=== PATIENT | male | born 1950 | race Hispanic/Latino ===

== ENCOUNTER 2019-07-17 22:54 | Inpatient (IN) | payer OTHER ==
[2019-07-18] MEDS ORDERED: NA CHLORIDE 0.9% 1,000 ML ONE (01:02)
[2019-07-18 01:06] LABS: Absolute Lymphocytes (CBC) 0.8 K/uL (0.7-4.9); Basophils % 0.4 % (0-1.3); Lymphocytes % 6.8 % (15.3-44.8); MPV 8.6 fL (7.6-11.3)
[2019-07-18 01:18] LABS: Bilirubin Total 0.4 mg/dL (0.2-1.0); Potassium 4.7 mmol/L (3.5-5.1); Protein, Total 7.2 g/dL (6.4-8.2)
[2019-07-18 02:27] LABS: Urine Blood NEGATIVE (NEG); Urine Glucose NEGATIVE (NEG); Urine Protein 3+ (NEG); Urine pH 6.5 (5.0-7.0)
--- NOTE | 2019-07-18 02:27 | ER ---
Nurse's Notes [facility] Name: Leonidas Cole Age: 68 yrs Sex: Male : 1950 Arrival Date: 07/17/2019 Time: 22:55 Bed 15 Private MD: Meredith Liriano Atiq Diagnosis: Bilateral Pneumonia Presentation: 07/17 23:34 Presenting complaint: Patient states: that over the past 2 days he has had trouble fc breathing, occ. cough with green sputum and nasal congestion. Transition of care: patient was not received from another setting of care. Onset of symptoms was July 15, 2019. Risk Assessment: Do you want to hurt yourself or someone else? Patient reports no desire to harm self or others. Initial Sepsis Screen: Does the patient meet any 2 criteria? No. Patient's initial sepsis screen is negative. Does the patient have a suspected source of infection? No. Patient's initial sepsis screen is negative. Care prior to arrival: None. 23:34 Method Of Arrival: Ambulatory 23:34 Acuity: SETH 3 fc Historical: - Allergies: 23:38 No Known Allergies; fc - Home Meds: 23:45 amlodipine 10 mg oral tab 1 tab once daily [Active]; carvedilol 3.125 mg oral tab 1 tab fc 2 times per day [Active]; gabapentin 100 mg oral cap twice a day [Active]; allopurinol 100 mg Oral tab 2 tabs once daily [Active]; aspirin 81 mg Oral chew 1 tab once daily [Active]; repatha twice a day [Active]; hydralazine 10 mg Oral tab 1 tab daily [Active]; hydroxyzine HCl 25 mg Oral tab .5 tab daily [Active]; - PMHx: 23:38 CAD; Hypertension; fc - PSHx: 23:38 heart cath; fc - Immunization history:: Last tetanus immunization: up to date Flu vaccine is not up to date. Patient has never been vaccinated. - Social history:: Smoking status: Patient/guardian denies using tobacco, Patient/guardian denies using alcohol, street drugs. - Ebola Screening: : Patient negative for fever greater than or equal to 101.5 degrees Fahrenheit, and additional compatible Ebola Virus Disease symptoms Patient denies exposure to infectious person Patient denies travel to an Ebola-affected area in the 21 days before illness onset. Screenin:40 Abuse screen: Denies threats or abuse. Nutritional screening: No deficits noted. fc Tuberculosis screening: No symptoms or risk factors identified. Fall Risk None identified. Assessment: 07/18 00:23 General: Appears uncomfortable, Behavior is appropriate for age. Pain: Complains of lp1 pain in chest. Neuro: Level of Consciousness is awake, alert, obeys commands, Oriented to person, place, time, situation. Cardiovascular: Patient's skin is warm and dry. Rhythm is sinus rhythm. Respiratory: Reports shortness of breath at rest cough that is productive, pain with respiration Airway is patent Respiratory effort is even, labored, Respiratory pattern is symmetrical, Breath sounds are clear bilaterally. Onset: The symptoms/episode began/occurred gradually, the patient has moderate shortness of breath. GI: Abdomen is non-distended. : No signs and/or symptoms were reported regarding the genitourinary system. EENT: Reports nasal congestion nasal discharge. Derm: Skin is pink, warm \T\ dry. Musculoskeletal: No deficits noted. 01:30 Reassessment: Patient appears in no apparent distress at this time. Patient and/or lp1 family updated on plan of care and expected duration. Pain level reassessed. Patient aware of pending results at this time. 02:20 Reassessment: Patient appears in no apparent distress at this time. no complaints made rr5 awaiting for review. 03:10 Reassessment: complaints of ED provider aware with order made and carried out. rr5 03:40 Reassessment: Patient appears in no apparent distress at this time. Patient is alert, rr5 oriented x 3, equal unlabored respirations, skin warm/dry/pink. Patient states feeling better. Patient states symptoms have improved. 04:00 Reassessment: Patient appears in no apparent distress at this time. Patient and/or rr5 family updated on plan of care and expected duration. Pain level reassessed. Patient is alert, oriented x 3, equal unlabored respirations, skin warm/dry/pink. seen and examined by dr. farfan agreed for the plan of care and for the admission. Vital Signs: 07/17 23:38 BP 147 / 56; Pulse 85; Resp 20; Temp 100.3(O); Pulse Ox 89% on R/A; Weight 104.33 kg fc (R); Height 5 ft. 11 in. (180.34 cm) (R); Pain 10/24; 07/18 00:15 BP 136 / 52; Pulse 82; Resp 24; Pulse Ox 96% on 2 lpm NC; lp1 00:30 BP 131 / 53; Pulse 81; Resp 28; Pulse Ox 95% on 2 lpm NC; lp1 01:00 BP 130 / 57; Pulse 80; Resp 26; Pulse Ox 94% on 2 lpm NC; lp1 01:30 BP 134 / 56; Pulse 78; Resp 24; Pulse Ox 93% on 2 lpm NC; lp1 03:00 BP 130 / 57; Pulse 78; Resp 23; Pulse Ox 96% on 3 lpm NC; rr5 04:00 BP 115 / 65; Pulse 85; Resp 20; Pulse Ox 100% on 3 lpm NC; rr5 07/17 23:38 Body Mass Index 32.08 (104.33 kg, 180.34 cm) fc ED Course: 07/17 22:55 Patient arrived in ED. mr 22:56 Meredith Liriano MD is Private Physician. mr 23:36 Triage completed. fc 23:38 Arm band placed on Patient placed in an exam room, on a stretcher. fc 23:40 Patient has correct armband on for positive identification. Placed in gown. Bed in low fc position. Call light in reach. 23:54 Nicholas Hernandez MD is Attending Physician. ps1 07/18 00:00 Missed attempt(s): 20 gauge in right antecubital area. Inserted saline lock: 20 gauge lp1 in left antecubital area, using aseptic technique. Blood collected. 00:22 Yoli Winston, RN is Primary Nurse. lp1 00:22 EKG done, by ED staff, reviewed by Nicholas Hernandez MD. lp1 01:34 CXR XRAY In Process Unspecified. EDMS 02:26 John Farfan DO is Hospitalizing Provider. ps1 03:40 No provider procedures requiring assistance completed. Patient admitted, IV remains in rr5 place. intact, No redness/swelling at site. Administered Medications: 01:04 Drug: NS 0.9% 1000 ml Route: IV; Rate: 1 bolus; Site: left antecubital; lp1 02:00 Follow up: Response: No adverse reaction; IV Status: Completed infusion; IV Intake: rr5 1000ml 02:50 Drug: Rocephin - (cefTRIAXone) 1 grams Route: IVPB; Infused Over: 30 mins; Site: left rr5 antecubital; 03:05 Follow up: Response: No adverse reaction; IV Status: Completed infusion rr5 03:00 Drug: SOLU-Medrol 125 mg Route: IVP; Site: left antecubital; rr5 04:00 Follow up: Response: No adverse reaction rr5 03:02 Drug: AZITHromycin 500 mg Route: IVPB; Infused Over: 1 hrs; Site: left antecubital; rr5 04:00 Follow up: Response: No adverse reaction; IV Status: Completed infusion; IV Intake: rr5 250ml 03:10 Drug: DuoNeb (3:1) (2.5 mg - 0.5 mg) 3 ml Route: Nebulizer; rr5 04:00 Follow up: Response: No adverse reaction rr5 Intake: 02:00 IV: 1000ml; Total: 1000ml. rr5 04:00 IV: 250ml; Total: 1250ml. rr5 Outcome: 02:26 Decision to Hospitalize by Provider. ps1 04:00 Admitted to ER Hold. Please see [facility] for further documentation. lp1 04:00 Condition: stable 04:00 Instructed on the need for admit. 07:56 Patient left the ED. ph Signatures: Dispatcher [employer] MADANOndina HawthorneAngelina, RN JARRET fc Yoli Winston RN RN lp1 Nita Cheney RN RN ph Nicholas Hernandez MD MD ps1 Jeremiah Matute RN RN rr5 Corrections: (The following items were deleted from the chart) 00:24 00:23 Respiratory: Reports shortness of breath at rest cough that is productive, pain lp1 with respiration Airway is patent Respiratory effort is even, labored, Respiratory pattern is symmetrical, Breath sounds are clear bilaterally. lp1
--- NOTE | 2019-07-18 02:27 | EDPHYS ---
Physician Documentation [facility] Name: Leonidas Cole Age: 68 yrs Sex: Male : 1950 Arrival Date: 07/17/2019 Time: 22:55 Bed 15 Private MD: Meredith Liriano Atiq ED Physician Nicholas Hernandez HPI: 07/18 01:08 This 68 yrs old Male presents to ER via Ambulatory with complaints of ps1 Breathing Difficulty. 01:08 patient states that he has had sinus congestion and pressure for last couple of days ps1 and then started having productive cough and shortness of breath. He now states that his chest hurts when coughing. Had fever and chills today. No respiratory distress. Hx of CAD and no stents. HTN.. Historical: - Allergies: 07/17 23:38 No Known Allergies; fc - Home Meds: 23:45 amlodipine 10 mg oral tab 1 tab once daily [Active]; carvedilol 3.125 mg oral tab 1 tab fc 2 times per day [Active]; gabapentin 100 mg oral cap twice a day [Active]; allopurinol 100 mg Oral tab 2 tabs once daily [Active]; aspirin 81 mg Oral chew 1 tab once daily [Active]; repatha twice a day [Active]; hydralazine 10 mg Oral tab 1 tab daily [Active]; hydroxyzine HCl 25 mg Oral tab .5 tab daily [Active]; - PMHx: 23:38 CAD; Hypertension; fc - PSHx: 23:38 heart cath; fc - Immunization history:: Last tetanus immunization: up to date Flu vaccine is not up to date. Patient has never been vaccinated. - Social history:: Smoking status: Patient/guardian denies using tobacco, Patient/guardian denies using alcohol, street drugs. - Ebola Screening: : Patient negative for fever greater than or equal to 101.5 degrees Fahrenheit, and additional compatible Ebola Virus Disease symptoms Patient denies exposure to infectious person Patient denies travel to an Ebola-affected area in the 21 days before illness onset. ROS: 07/18 01:08 Constitutional: Negative for fever, chills, and weight loss, Eyes: Negative for injury, ps1 pain, redness, and discharge, Abdomen/GI: Negative for abdominal pain, nausea, vomiting, diarrhea, and constipation, Back: Negative for injury and pain, MS/Extremity: Negative for injury and deformity, Skin: Negative for injury, rash, and discoloration, Neuro: Negative for headache, weakness, numbness, tingling, and seizure. Cardiovascular: Negative for chest pain, palpitations, and edema. Respiratory: Positive for cough, pleurisy. Exam: 01:08 Constitutional: This is a well developed, well nourished patient who is awake, alert, ps1 and in no acute distress. Head/Face: Normocephalic, atraumatic. Eyes: Pupils equal round and reactive to light, extra-ocular motions intact. Lids and lashes normal. Conjunctiva and sclera are non-icteric and not injected. Chest/axilla: Normal chest wall appearance and motion. Nontender with no deformity. No lesions are appreciated. Cardiovascular: Regular rate and rhythm. No gallops, murmurs, or rubs. Normal PMI, no JVD. No pulse deficits. Respiratory: Lungs have equal breath sounds bilaterally, clear to auscultation and percussion. No rales, rhonchi or wheezes noted. No increased work of breathing, no retractions or nasal flaring. Abdomen/GI: Soft, non-tender, with normal bowel sounds. No distension or tympany. No guarding or rebound. No evidence of tenderness throughout. Skin: Warm, dry with normal turgor. Normal color with no rashes, no lesions, and no evidence of cellulitis. MS/ Extremity: Pulses equal, no cyanosis. Neurovascular intact. Full, normal range of motion. Neuro: Awake and alert, GCS 15, oriented to person, place, time, and situation. Cranial nerves II-XII grossly intact. Sensory grossly intact. Psych: Awake, alert, with orientation to person, place and time. Behavior, mood, and affect are within normal limits. Vital Signs: 07/17 23:38 BP 147 / 56; Pulse 85; Resp 20; Temp 100.3(O); Pulse Ox 89% on R/A; Weight 104.33 kg fc (R); Height 5 ft. 11 in. (180.34 cm) (R); Pain 10/24; 07/18 00:15 BP 136 / 52; Pulse 82; Resp 24; Pulse Ox 96% on 2 lpm NC; lp1 00:30 BP 131 / 53; Pulse 81; Resp 28; Pulse Ox 95% on 2 lpm NC; lp1 01:00 BP 130 / 57; Pulse 80; Resp 26; Pulse Ox 94% on 2 lpm NC; lp1 01:30 BP 134 / 56; Pulse 78; Resp 24; Pulse Ox 93% on 2 lpm NC; lp1 03:00 BP 130 / 57; Pulse 78; Resp 23; Pulse Ox 96% on 3 lpm NC; rr5 04:00 BP 115 / 65; Pulse 85; Resp 20; Pulse Ox 100% on 3 lpm NC; rr5 10/03 23:38 Body Mass Index 32.08 (104.33 kg, 180.34 cm) fc MDM: 01:25 Patient medically screened. ps1 07/18 00:58 Order name: CBC with Diff; Complete Time: 01:26 ps1 07/18 00:58 Order name: CMP; Complete Time: 01:26 ps1 07/18 00:58 Order name: Lactate; Complete Time: 02:18 ps1 07/18 01:55 Order name: Urine Dipstick--Ancillary (enter results); Complete Time: 02:29 ar5 07/18 04:48 Order name: T4 Free; Complete Time: 05:43 EDMS 07/18 04:48 Order name: Thyroid Stimulating Hormone; Complete Time: 05:43 EDMS 07/18 00:58 Order name: CXR XRAY ps1 07/18 05:33 Order name: Procalcitonin; Complete Time: 05:43 EDMS 07/18 05:40 Order name: Transferrin Sat/Iron Binding; Complete Time: 05:43 EDMS 07/18 05:40 Order name: Ferritin; Complete Time: 05:43 EDMS 07/18 05:40 Order name: Vitamin B12 Level; Complete Time: 05:43 EDMS 07/18 00:58 Order name: EKG - Nurse/Tech; Complete Time: 00:59 ps1 07/18 01:58 Order name: Urine Dipstick-Ancillary (obtain specimen); Complete Time: 01:58 lp1 Administered Medications: 01:04 Drug: NS 0.9% 1000 ml Route: IV; Rate: 1 bolus; Site: left antecubital; lp1 02:00 Follow up: Response: No adverse reaction; IV Status: Completed infusion; IV Intake: rr5 1000ml 02:50 Drug: Rocephin - (cefTRIAXone) 1 grams Route: IVPB; Infused Over: 30 mins; Site: left rr5 antecubital; 03:05 Follow up: Response: No adverse reaction; IV Status: Completed infusion rr5 03:00 Drug: SOLU-Medrol 125 mg Route: IVP; Site: left antecubital; rr5 04:00 Follow up: Response: No adverse reaction rr5 03:02 Drug: AZITHromycin 500 mg Route: IVPB; Infused Over: 1 hrs; Site: left antecubital; rr5 04:00 Follow up: Response: No adverse reaction; IV Status: Completed infusion; IV Intake: rr5 250ml 03:10 Drug: DuoNeb (3:1) (2.5 mg - 0.5 mg) 3 ml Route: Nebulizer; rr5 04:00 Follow up: Response: No adverse reaction rr5 Disposition: 07/18/19 02:26 Hospitalization ordered by John Proctor for Inpatient Admission. Preliminary diagnosis is Bilateral Pneumonia. - Bed requested for Telemetry/MedSurg (Inpatient). - Status is Inpatient Admission. ph - Condition is Stable. - Problem is new. - Symptoms are unchanged. UTI on Admission? No Signatures: Dispatcher [employer] EDMS Angelina Bee RN JARRET Yoli Winston RN RN lp1 Nita Cheney RN RN Adrianne Elias RN RN Nicholas Hernandez MD MD ps1 Roque, Raymond, RN RN rr5 Corrections: (The following items were deleted from the chart) 02:42 02:26 Hospitalization Ordered by John Proctor DO for Inpatient Admission. Preliminary cg diagnosis is Bilateral Pneumonia. Bed requested for Telemetry/MedSurg (Inpatient). Status is Inpatient Admission. Condition is Stable. Problem is new. Symptoms are unchanged. UTI on Admission? No. ps1 04:41 02:42 07/18/2019 02:26 Hospitalization Ordered by John Proctor DO for Inpatient cg Admission. Preliminary diagnosis is Bilateral Pneumonia. Bed requested for [facility] ER HOLD. Status is Inpatient Admission. Condition is Stable. Problem is new. Symptoms are unchanged. UTI on Admission? No. cg 07:56 04:41 07/18/2019 02:26 Hospitalization Ordered by John Proctor DO for Inpatient ph Admission. Preliminary diagnosis is Bilateral Pneumonia. Bed requested for Telemetry/MedSurg (Inpatient). Status is Inpatient Admission. Condition is Stable. Problem is new. Symptoms are unchanged. UTI on Admission? No. cg
[2019-07-18] MEDS ORDERED: METHYLPREDNISOLONE 125 MG INJ ONE (02:36)
[2019-07-18] MEDS ORDERED: CEFTRIAXONE/SWI 1gm 1 GM/10 ML SYR ONE (02:37)
[2019-07-18] MEDS ORDERED: AZITHROMYCIN 500 MG INJ IVPB ONE (02:37)
[2019-07-18] MEDS ORDERED: NA CHLORIDE 0.9% 250 ML ONE (02:37)
[2019-07-18] MEDS ORDERED: ALBUTEROL 2.5 MG/3 ML NEB SOL ONE (03:09)
[2019-07-18] MEDS ORDERED: IPRATROPIUM BROM 0.5MG/2.5ML ONE (03:10)
[2019-07-18] MEDS ORDERED: ONDANSETRON 4 MG/2 ML VIAL IV PRN (03:39)
[2019-07-18] MEDS ORDERED: BENZONATATE 100 MG CAP PO PRN (03:39)
[2019-07-18] MEDS ORDERED: GUAIFENESIN 600 MG SA TAB PO PRN (03:39)
[2019-07-18] MEDS ORDERED: ACETAMINOPHEN 500 MG TAB PO PRN (03:39)
--- NOTE | 2019-07-18 03:45 | P.HP ---
Certification for Inpatient Patient admitted to: Inpatient With expected LOS: >2 Midnights Patient will require the following post-hospital care: None Practitioner: I am a practitioner with admitting privileges, knowledge of patient current condition, hospital course, and medical plan of care. Services: Services provided to patient in accordance with Admission requirements found in Title 42 Section 412.3 of the Code of Federal Regulations Patient History Date of Service: 07/18/19 Primary Care Provider: Dr. Liriano; Pulmonary-Dr. Boo Reason for admission: Shortness of breath, fever History of Present Illness: 68-year-old male presented to emergency room with shortness of breath and fever. Patient with history of chronic renal disease, hypertension, gout, CAD. Patient also has history of recurrent pneumonia over the past 5 years. Patient reported fever, shortness of breath over the last day. He denies any sick contacts. Denies any chest pain. Symptoms worse today. He came to the ER for further evaluation. In the ER patient evaluated. Patient had a fever emergency room. Blood pressure stable. He was slightly tachypneic. Urinalysis negative. White count 12.5, hemoglobin 8.9. Sodium 138, potassium 4.7. BUN of 55, creatinine 2.9 with a GFR of 21. Chest x-ray showed bilateral pneumonia. IV antibiotics initiated. Patient admitted for further evaluation and treatment. When I saw the patient the ER, he appeared more comfortable. Patient does not appear septic. Allergies niacin [From Niaspan Extended-Release] Allergy (Mild, Verified 08/14/12 23:06) Itching No Known Allergies Allergy (Uncoded 03/23/16 17:47) Unknown Home medications list reviewed: Yes Home Medications: Amlodipine [Norvasc*] 10 mg PO DAILY 07/27/14 Atorvastatin Calcium [Lipitor*] 20 mg PO BEDTIME 07/27/14 Gabapentin [Neurontin*] 300 mg PO TID 07/27/14 Lisinopril [Zestril] 20 mg PO DAILY 07/27/14 Docusate [Colace Cap] 100 mg PO BID #60 cap 07/28/14 levoFLOXacin [Levaquin*] 750 mg PO DAILY #14 tab 07/28/14 - Past Medical/Surgical History Diabetic: No -: Recurrent pneumonia -: Hypertension -: CAD -: Gout -: Chronic renal disease stage 3 -: three fusions in neck -: right knee sx -: left shoulder sx Psychosocial/ Personal History: Patient is - Family History Family History: Reviewed- Non-Contributory - Social History Smoking Status: Never smoker Alcohol use: No CD- Drugs: No Caffeine use: No Place of Residence: Home Review of Systems General: Fever, Chills, As per HPI Eyes: Unremarkable ENT: Unremarkable Respiratory: Shortness of Breath, As per HPI Cardiovascular: Unremarkable Gastrointestinal: Unremarkable Genitourinary: Unremarkable Musculoskeletal: Unremarkable Integumentary: Unremarkable Neurological: Unremarkable Lymphatics: Unremarkable Physical Examination - Physical Exam General: Alert, In no apparent distress, Oriented x3, Cooperative HEENT: Atraumatic, Normocephalic, PERRLA, Other (Mild congestion to the nares) Neck: Supple, No Thyromegaly Respiratory: Crackles/rales (Bilateral) Cardiovascular: Normal pulses, Regular rate/rhythm Gastrointestinal: Normal bowel sounds, Soft and benign, Non-distended, No ascites, No tenderness, No masses, No rebound, No guarding Musculoskeletal: No erythema, No tenderness, No warmth Integumentary: No tenderness/swelling, No erythema, No warmth, No cyanosis Neurological: Normal speech, Normal strength at 5/5 x4 extr, Normal tone, Normal affect - Studies Laboratory Data (last 24 hrs) 07/18/19 00:00: Sodium 138, Potassium 4.7, BUN 55 H, Creatinine 2.99 H, Glucose 165 H, Total Bilirubin 0.4, AST 29, ALT 33, Alkaline Phosphatase 95 07/18/19 00:00: WBC 12.5 H, Hgb 8.9 L, Hct 27.0 L, Plt Count 217 Assessment and Plan - Plan Impression: Shortness of breath, fevers secondary to recurrent bilateral pneumonia Acute on chronic renal disease stage IV Hypertension CAD Gout Anemia likely of chronic disease Chronic pain Plan: Shortness of breath, fevers secondary to recurrent bilateral pneumonia: Patient admitted further evaluation and treatment. Will continue with IV Rocephin and Zithromax. Will provide medication for cough and congestion. Will maintain sats above 90%. Will provide DVT prophylaxis-heparin. Will recheck chest x-ray. Will check echocardiogram to evaluate shortness of breath. Blood , sputum cultures obtained. Pulmonology consulted to further assess. Daytime hospitalist to continue his care. Anticipate discharge in the next 2-3 days pending clinical improvement. Acute on chronic renal disease stage IV: Will provide IV fluids. Will consult Nephrology to further evaluate. Hypertension: Will need to obtain and restart home medication. Will monitor and address appropriately. CAD: Will obtain echocardiogram. Continue with Ranexa. Gout: Continue with home medication. Anemia likely of chronic disease: Will monitor closely. Will check iron and B12 studies. Chronic pain: Continue with gabapentin Discharge Plan: Home Plan to discharge in: 72 Hours - Advance Directives Does patient have a Living Will: No Does patient have a Durable POA for Healthcare: No - Code Status/Comfort Care Code Status Assessed: Yes (Patient is full code) Time Spent Managing Pts Care (In Minutes): 55
[2019-07-18] MEDS ORDERED: NA CHLORIDE 0.9% 1,000 ML IV SCH (04:00)
[2019-07-18 04:21] VITALS: BMI 32.1
[2019-07-18 04:48] LABS: Thyroid Stimulating Hormone 3.01 uIU/mL (0.360-3.740)
[2019-07-18 05:40] LABS: Ferritin 59.8 ng/mL (26-388)
[2019-07-18] MEDS ORDERED: AZITHROMYCIN IV 500 MG in NA CHLORIDE 0.9% 250 ML IVPB SCH (09:00)
[2019-07-18] MEDS ORDERED: CEFTRIAXONE 1 GM/NS 50 ML 1 GM/50 ML BAG IV SCH (09:00)
[2019-07-18] MEDS ORDERED: HYDRALAZINE HCL 10 MG TABLET PO SCH (09:00)
[2019-07-18] MEDS ORDERED: ALLOPURINOL 100 MG TAB PO SCH (09:00)
[2019-07-18] MEDS ORDERED: ENOXAPARIN 30 MG/0.3 ML SQ SCH (09:00)
[2019-07-18 09:15] VITALS: BP 129/62; TEMP 98.1
--- NOTE | 2019-07-18 09:42 | P.CNS ---
Date of Consult: 07/18/19 Primary Care Provider: Dr. Liriano; Pulmonary-Dr. Boo Chief Complaint: Shortness of breath, fever History of Present Illness: Patient is 68 years of age with a history of angina coronary artery disease admitted with a 2 day history of fever chills cough associated with some shortness of breath he denies any prior dyspnea on exertion seen by a bronze chaser. Unable to have a stent placed due to narrowing of his arteries as per the patient he does not smoke compliant with his CPAP machine according to the patient he has had recurrent pneumonia patient has chronic renal failure Allergies No Known Allergies Allergy (Verified 07/18/19 04:05) Home Medications: Amlodipine [Norvasc*] 10 mg PO DAILY 07/27/14 Gabapentin [Neurontin*] 200 mg PO DAILY 07/27/14 Allopurinol [Zyloprim] 2 tab PO DAILY 07/18/19 Aspirin [Adult Low Dose Aspirin EC] 81 mg PO DAILY 07/18/19 Carvedilol [Coreg] 3.125 mg PO BID 07/18/19 Hydralazine [Apresoline] 10 mg PO DAILY 07/18/19 - Past Medical/Surgical History Diabetic: No -: Recurrent pneumonia -: Hypertension -: CAD -: Gout -: Chronic renal disease stage 3 -: three fusions in neck -: right knee sx -: left shoulder sx Psychosocial/ Personal History: Patient is - Social History Smoking Status: Never smoker Alcohol use: No CD- Drugs: No Caffeine use: No Place of Residence: Home Review of Systems 10-point ROS is otherwise unremarkable Physical Examination Temp Pulse Resp BP Pulse Ox 98.1 F 72 18 129/62 92 07/18/19 08:00 07/18/19 08:00 07/18/19 08:00 07/18/19 08:00 07/18/19 08:00 General: Alert, In no apparent distress, Oriented x3 HEENT: Atraumatic Neck: Supple Respiratory: Crackles/rales (Crackles on the right lower lobe) Cardiovascular: No edema, Regular rate/rhythm, Normal S1 S2 Laboratory Data (last 24 hrs) 07/18/19 00:00: Sodium 138, Potassium 4.7, BUN 55 H, Creatinine 2.99 H, Glucose 165 H, Total Bilirubin 0.4, AST 29, ALT 33, Alkaline Phosphatase 95 07/18/19 00:00: WBC 12.5 H, Hgb 8.9 L, Hct 27.0 L, Plt Count 217 Conclusions/Impression: Patient is 68 years of age admitted with a 2 day history of fever chills cough some shortness of breath. No chest x-rays available he does have crackles on the right lower zone chronic renal failure patient's pro calcitonin level is elevated vital signs are stable check room air pulse ox possible discharge today on low-dose levofloxacin adjusted for his renal function to follow with me in 2 weeks. Also check is echocardiogram they have underlying failure
[2019-07-18 12:47] VITALS: O2SAT 95
--- NOTE | 2019-07-18 13:22 | P.SSS ---
Patient History Date of Service: 07/18/19 Primary Care Provider: Dr. Liriano; Pulmonary-Dr. Boo Reason for admission: Shortness of breath, fever History of Present Illness: 68-year-old male presented to emergency room with shortness of breath and fever. Patient with history of chronic renal disease, hypertension, gout, CAD. Patient also has history of recurrent pneumonia over the past 5 years. Patient reported fever, shortness of breath over the last day. He denies any sick contacts. Denies any chest pain. Symptoms worse today. He came to the ER for further evaluation. In the ER patient evaluated. Patient had a fever emergency room. Blood pressure stable. He was slightly tachypneic. Urinalysis negative. White count 12.5, hemoglobin 8.9. Sodium 138, potassium 4.7. BUN of 55, creatinine 2.9 with a GFR of 21. Chest x-ray showed bilateral pneumonia. IV antibiotics initiated. Patient admitted for further evaluation and treatment. When I saw the patient the ER, he appeared more comfortable. Patient does not appear septic. Allergies No Known Allergies Allergy (Verified 07/18/19 04:05) Home medications list reviewed: Yes Home Medications: Amlodipine [Norvasc*] 10 mg PO DAILY 07/27/14 Gabapentin [Neurontin*] 200 mg PO DAILY 07/27/14 Allopurinol [Zyloprim*] 2 tab PO DAILY 07/18/19 Aspirin [Adult Low Dose Aspirin EC] 81 mg PO DAILY 07/18/19 Benzonatate [Tessalon Perle*] 100 mg PO TID PRN #10 cap 07/18/19 Carvedilol [Coreg*] 3.125 mg PO BID 07/18/19 Hydralazine [Apresoline*] 10 mg PO DAILY 07/18/19 levoFLOXacin [Levaquin] 750 mg PO Q48H #4 tab 07/18/19 - Past Medical/Surgical History Has patient received pneumonia vaccine in the past: Yes Diabetic: No -: Recurrent pneumonia -: Hypertension -: CAD -: Gout -: Chronic renal disease stage 3 -: three fusions in neck -: right knee sx -: left shoulder sx Psychosocial/ Personal History: Patient is - Family History Family History: Reviewed- Non-Contributory - Social History Smoking Status: Never smoker Alcohol use: No CD- Drugs: No Caffeine use: No Place of Residence: Home Review of Systems 10-point ROS is otherwise unremarkable Physical Examination - Vital Signs Temperature: 98.1 F Blood Pressure: 129/62 Pulse: 72 Respirations: 18 Pulse Ox (%): 92 - Physical Exam General: Alert, In no apparent distress HEENT: Atraumatic, PERRLA, Mucous membr. moist/pink, EOMI, Sclerae nonicteric Neck: Supple, 2+ carotid pulse no bruit, No LAD, Without JVD or thyroid abnormality Respiratory: Clear to auscultation bilaterally, Normal air movement Cardiovascular: Regular rate/rhythm, Normal S1 S2 Gastrointestinal: Normal bowel sounds, No tenderness Musculoskeletal: No tenderness Integumentary: No rashes Neurological: Normal gait, Normal speech, Normal strength at 5/5 x4 extr, Normal tone, Normal affect Lymphatics: No axilla or inguinal lymphadenopathy - Studies Laboratory Data (last 24 hrs) 07/18/19 00:00: Sodium 138, Potassium 4.7, BUN 55 H, Creatinine 2.99 H, Glucose 165 H, Total Bilirubin 0.4, AST 29, ALT 33, Alkaline Phosphatase 95 07/18/19 00:00: WBC 12.5 H, Hgb 8.9 L, Hct 27.0 L, Plt Count 217 Treatment Summary: Patient was admitted for PNA, given IV antibiotics. Seen by pulmonology and cleared for discharge. He was clinically improved, doing better. He wanted to go home. Seen and examined by me. Clinically doing well. His diagnosis and treatment plan explained to him. All questions answered, he verbalized understanding. He was then discharged home in a safe and stable manner. - Disposition Discharge Date: 07/18/19 Disposition: ROUTINE DISCHARGE Condition: GOOD Consultations: Dr. Boo Patient Discharge Instructions: Please follow up with your primary care physician in 2-3 days for blood work. Return to the ER for worsening symptoms. Diet: AHA Activity: Ad myles Time Spent Managing Pts Care (In Minutes): 45
[2019-07-18] MEDS ORDERED: GABAPENTIN 100 MG CAP PO SCH (21:00)
[2019-07-18] MEDS ORDERED: CEFTRIAXONE/SWI 1gm 1 GM/10 ML SYR IV SCH (21:00)
--- NOTE | 2019-07-19 04:44 | EKG ---
Test Date: 2019-07-18 Test Time: 00:14:08 Machine Strap Buckler: SHANTEL MEASUREMENT RESULTS: Intervals: Rate: 83 WA: 176 QRSD: 86 QT: 366 QTc: 430 [place]: P: 58 WA: 176 QRS: 87 T: -25 INTERPRETIVE STATEMENTS: Normal sinus rhythm ST & T wave abnormality, consider inferior ischemia Abnormal ECG Compared to ECG 03/24/2016 02:09:08 ST (T wave) deviation now present Possible ischemia now present Electronically Signed On 07-19-19 04:43:52 CDT by Benjamin Silva
[2019-07-19] MEDS ORDERED: AZITHROMYCIN IV 500 MG in NA CHLORIDE 0.9% 250 ML IVPB SCH (09:00)
[2019-07-19] MEDS ORDERED: CEFTRIAXONE/SWI 1gm 1 GM/10 ML SYR IV SCH (09:00)
--- NOTE | 2019-07-19 16:01 | RAD REPORT ---
EXAM DESCRIPTION: Blane Single View07/18/2019 7:05 pm CLINICAL HISTORY: Cough COMPARISON: 2016 FINDINGS: Due to technical issues at the hospital the exam could not be dictated after completion. It is now available for dictation Moderate alveolar opacities right lung Left lung appears clear of acute infiltrate Heart is mildly enlarged IMPRESSION: Moderate right lung opacities probably pneumonia. This should be followed until it has c leared to help exclude a post obstructive process/underlying mass
== END 2019-07-18 15:03 | disposition home or self-care (01) | DRG 194 ==
LOC: ER 22:54 → ERHOLD 07-18 03:09 → 2ND 07-18 07:44
PROVIDERS: ADMIT Family Medicine; ATTEND Family Medicine
DX: J18.9 Pneumonia, unspecified organism (principal); N18.4 Chronic kidney disease, stage 4 (severe); N17.9 Acute kidney failure, unspecified; I25.10 Atherosclerotic heart disease of native coronary artery without angina pectoris; I12.9 Hypertensive chronic kidney disease with stage 1 through stage 4 chronic kidney disease, or unspecified chronic kidney disease; M10.9 Gout, unspecified; G89.29 Other chronic pain
CPT/HCPCS: 36415; 71045; 80053; 81003; 82607; 82728; 83540; 83605; 84145; 84439; 84443; 84466; 85025; 87040; 87070; 87205; 93005; 94640; 96361; 96365; 96375; 99285; J0456; J0696; J1650; J2930; J7030